=== PATIENT | male | born 1950 | race Caucasian/White ===

== ENCOUNTER 2016-11-02 07:25 | Inpatient (IN) | payer BC ==
[~2016-11-02] VITALS: Ht 170.2 cm; Wt 87.7 kg
--- NOTE | 2016-11-04 13:16 | ER ---
ADMIT: 11/02/2016 RM/LOC: 411 [facility] MR#: [id number] [address] [address] MIHAI CADENA [address] [place] [address] Emergency Room Report SEX: M AGE: 66 : 1950 DATE: 11/02/2016 The patient is a 66-year-old male with a past medical history of hypertension, lung cancer status post right lung lobectomy, bladder cancer, prostate cancer, and basal cell carcinoma of the skin. The patient is not taking any chemotherapy or radiotherapy at the moment. The patient came to the ER with chief complaint of fever, chills, and feeling very weak and tired since this morning. The patient denies any sick contact at home. The patient states he has some cough, which was dry. The patient denied increase in shortness of breath. In the ER, the patient had temperature of 101 and received Tylenol for that. Heart rate was 145, with blood pressure of 130 systolic. The patient was started on IV fluids. Sepsis workup was started. Lactic acid was 3.5. WBC was 17.5 with 16.6 of neutrophil, and hemoglobin was 15.9. The patient was negative for influenza A and B antigen. Urine was negative for any infection or stone. Chest x-ray, first read in the ER was questionable for small infiltrations, but official Radiology read, they believe, there is no infiltration. The patient meanwhile has received levofloxacin IV in the ER. The patient was admitted for further followups and treatments of sepsis, viral causes versus pneumonia, bacterial. Questionable for septicemia. Deshaun Torres MD/ amadeo JOB #: [id number] CC: Francisco Gonzales MD, Attending Physician Francisco Gonzales MD, Family Physician
--- NOTE | 2016-11-05 10:44 | HP ---
ADMIT: 11/02/2016 RM/LOC: 411 [facility] MR#: [id number] [id number] [place], [place] [address] MIHAI CADENA [address] [place] [address] History and Physical SEX: M AGE: 66 : 1950 DATE OF SERVICE: CHIEF COMPLAINT: Fevers, chills, body shakes. HISTORY OF PRESENT ILLNESS: The patient is a 66-year-old male, presented to ER with 12 hours of fevers, chills, and shakes also couple days of preceding URI like symptoms. Also notes a history of COPD with prior tobacco history. His only significant medical problems are rather extensive cancer history. PAST MEDICAL HISTORY: Lung cancer, bladder cancer, prostate cancer, basal cell cancer, hypertension, and COPD. PAST SURGICAL HISTORY: Prostate, lung, and shoulder. ALLERGIES: PATIENT DENIES. MEDS: 1. Aspirin 81 daily. 2. Chlorthalidone 25 daily. 3. Multivitamin one daily. 4. ProAir p.r.n. FAMILY HISTORY: Cancer. REVIEW OF SYSTEMS: Notes fevers, chills, nonspecific chest tightness. Denies any true chest pain, headaches, nausea, vomiting, numbness, tingling, vision changes, or melena. SOCIAL HISTORY: Notes prior tobacco use. No drugs or alcohol. PHYSICAL EXAMINATION: VITAL SIGNS: Temp 97.5, pulse 105, respirations 20, blood pressure 114/52, and O2 sat 92% on room air. GENERAL: He is alert, awake, oriented, in no acute distress. HEENT: Normocephalic, atraumatic. Pupils round and reactive to light. Extraocular muscles intact. HEART: Regular rate and rhythm. LUNGS: Relatively clear, slightly diminished. ABDOMEN: Soft, nontender, nondistended. EXTREMITIES: No clubbing, cyanosis, or edema. LABORATORY DATA: 0.25. Potassium 2.5, mag 1.5, , lactic acid 3.9. UA unremarkable. Chest x-ray clear. White count 17.5, hemoglobin ADMIT: 11/02/2016 RM/LOC: 411 [facility] MR#: [id number] [address] [address] MIHAI CADENA [address] [place] [address] History and Physical SEX: M AGE: 66 : 1950 15, hematocrit . Blood culture is pending. Influenza negative. Wound culture pending. ASSESSMENT: A 66-year-old male with: 1. Sepsis. 2. Fever. 3. Upper respiratory tract infection. 4. Tachycardia. 5. Extensive cancer history. PLAN: We will continue IV fluid resuscitation, IV antibiotics, nebs, we will give him low-dose steroids. Ced Castillo MD/ amadeo JOB #: [id number] CC: Francisco Gonzales, Attending Physician Francisco Gonzales, Family Physician
[2016-11-08] MEDS ORDERED: ASA CHILDREN'S81 MG PO (18:37)
[2016-11-08] MEDS ORDERED: THERAPEUTIC MUL1 TAB PO (18:38)
[2016-11-08] MEDS ORDERED: CHLOROTHALIDONE PO (18:39)
[2016-11-08] MEDS ORDERED: PROAIR HFA8.5 GM IH (18:40)
[2016-11-08] MEDS ORDERED: DUONEB DPS3 ML IH (18:40)
[2016-11-08] MEDS ORDERED: MICRO-K DPS10 MEQ PO (18:40)
[2016-11-08] MEDS ORDERED: MAALOX DPS30 ML PO (18:41)
[2016-11-08] MEDS ORDERED: DELTASONE DPS1 MG PO (18:41)
[2016-11-08] MEDS ORDERED: ROCEPHIN DPS2 GM IV (18:41)
[2016-11-08] MEDS ORDERED: SURFAK DPS240 MG PO (18:42)
[2016-11-08] MEDS ORDERED: TYLENOL DPS325 MG PO (18:42)
--- NOTE | 2016-11-14 14:12 | CO ---
ADMIT: 11/02/2016 RM/LOC: 411 [facility] MR#: [id number] [address] [address] MIHAI CADENA [address] [place] [address] Consultation SEX: M AGE: 66 : 1950 DATE OF CONSULTATION: 11/05/2016 ATTENDING PHYSICIAN: Francisco Gonzales CONSULTING PHYSICIAN: Laure Roman MD REASON FOR CONSULT: Bacteremia. Thank you, Dr. Gonzales, for the consult and involving me in this patient's care. HISTORY OF PRESENT ILLNESS: Mr. Cadena is a 66-year-old man with past medical history of lung cancer, status post right lung lobectomy, bladder cancer, prostate cancer, and basal cell carcinoma of the skin, who presented to the ER on November 02 with complain of fever, chills, and feeling extremely weak. Prior to symptoms, he noticed some cold and mild cough. He lives at home with his and pet cat and dog. He denied any recent travel or sick contacts. He was found to have fever of 101 in the ER and elevated lactic acid of 3.5, and WBC count of 17.5. He was started on broad-spectrum antibiotics with vancomycin and Zosyn and his admission blood cultures grew Streptococcus pneumoniae. CT scan of the chest was done, and he was found to have extensive consolidation in the medial aspect of the right lower lobe. He also has severe emphysema. The patient feels much better clinically since admission. He continues to have some cough and now reports brownish-colored sputum. He does not have any fever since starting antibiotics. PAST MEDICAL HISTORY: 1. Bladder cancer. 2. Prostate cancer. 3. Basal cell carcinoma. 4. Lung cancer, currently not on any chemotherapy. 5. Hypertension. 6. COPD. PAST SURGICAL HISTORY: 1. Right lung lobectomy in 1994. 2. Right rotator cuff surgery. SOCIAL HISTORY: He lives at home with his and works and [employer]. Quit smoking in 1994. Denies any smoking. Denies any recreational drug use or alcohol. FAMILY HISTORY: Significant for breast cancer in his mother. ALLERGIES: NO KNOWN DRUG ALLERGIES. CURRENT MEDICATIONS: 1. Aspirin. 2. DuoNeb. ADMIT: 11/02/2016 RM/LOC: 411 [facility] MR#: [id number] [address] [address] [address] [place] [address] Consultation SEX: M AGE: 66 : 1950 3. Lovenox. 4. Solu-Medrol 40 mg twice daily. 5. Zosyn 3.375 g every 8 hours. 6. Vancomycin 1.75 g twice daily. REVIEW OF SYSTEMS: A 10-point review of systems negative except as mentioned in the HPI. PHYSICAL EXAMINATION: VITAL SIGNS: Current temperature 96.5, heart rate 75, respirations 16, blood pressure 124/67, and 91% on room air. GENERAL: No acute distress. HEENT. Head, normocephalic and atraumatic. Extraocular movements intact. LYMPH: No palpable anterior/posterior cervical or supraclavicular lymphadenopathy. CHEST: Decreased breath sounds bilaterally. CARDIOVASCULAR: S1, S2 heard. Regular rate and rhythm. ABDOMEN: Soft, obese, and nontender. Active bowel sounds. EXTREMITIES: Trace pretibial edema in bilateral lower extremities. SKIN: No rash noted on exposed skin. PSYCH: Normal affect. Memory intact. DATA REVIEW: Chest x-ray today shows extensive bibasilar linear densities and ground-glass opacities with small right pleural effusion. Repeat blood cultures have been no growth to date. Blood cultures on November 02 is growing Streptococcus pneumoniae, which is pansensitive. CBC today shows white count of 25.1, hemoglobin 11.8, and platelets of 295. BMP shows creatinine of 0.6, potassium 3.3. ASSESSMENT AND PLAN: 1. Streptococcus pneumoniae bacteremia, secondary to #2. 2. Invasive community-acquired pneumonia. ADMIT: 11/02/2016 RM/LOC: 411 [facility] MR#: [id number] [address] [address] MIHAI CADENA [address] [place] [address] Consultation SEX: M AGE: 66 : 1950 3. History of lung cancer. 4. Severe chronic obstructive pulmonary disease. 5. Bladder cancer. 6. Lactic acidosis, improved. PLAN: I will discontinue vancomycin and Zosyn and narrow antibiotics down to ceftriaxone 2 g IV once daily. I will also check sputum culture and sensitivity. I would like to treat him with IV antibiotics for a while, given extensive pneumonia and immunocompromised state. Given the invasive pneumococcal disease, I would also like to check HIV test. Thank you for the consult and I will continue to follow the patient. Laure Roman MD/ amadeo JOB #: [id number] CC: Francisco Gonzales, Attending Physician Francisco Gonzales, Family Physician
--- NOTE | 2016-11-19 07:52 | DS ---
ADMIT: 11/02/2016 RM/LOC: 411 [facility] MR#: [id number] [address] [address] MIHAI CADENA [address] [place] [address] General Discharge Summary SEX: M AGE: 66 : 1950 ADMISSION DATE: 11/02/2016 DISCHARGE DATE: 11/07/2016 FINAL DIAGNOSES: 1. Invasive community-acquired pneumonia. 2. Streptococcus pneumoniae bacteremia/human metapneumovirus infection secondary to invasive community-acquired pneumonia. 3. Severe chronic obstructive pulmonary disease. 4. Lactic acidosis secondary to invasive community-acquired pneumonia. 5. History of lung cancer. 6. History of bladder cancer. 7. History of prostate cancer. 8. Systemic hypertension. 9. Status post prostatectomy, pneumonectomy, and rotator cuff repair. BRIEF HISTORY: This 66-year-old, male, presented to the emergency room with 12 hours of fevers, chills, and shaking that was appreciated "for a couple of days with URI like symptoms." He also had a history of COPD and extensive cancer history. When seen in the ER, he was obviously ill, had laboratory abnormalities as outlined below, and he was admitted for further evaluation and treatment. SIGNIFICANT LAB AND X-RAY: On admission; CBC showed hemoglobin 15.9 with normal indices, platelets of 284,000, white count of 17,500 with a left shift. Serial CBCs were followed, and by 11/06, his hemoglobin was 12 g still with normal indices and white count of 19,400. On 11/06, sedimentation rate was 47 mm/hour. On admission, INR and PTT were essentially normal. Admitting urinalysis was normal. On 11/02 in the emergency room, BMP showed a potassium of 3.5 mmol/L, phosphorus of 1.3 mg/dL (normal 2.5 to 4.9), and magnesium of 1.5 mg/dL (normal 1.8 to 2.4), and the CMP was otherwise within normal limits. On admission, procalcitonin was 0.25 ng/mL (greater than 2.0 represents high risk of severe sepsis or septic shock). On 11/02, lactic acid was 3.5 mmol/L and repeat 6 hours later was 2.6 mmol/L. Serial lactic acids were followed and by 11/03 was down to 2.7 mL/L. Serial chemistries were followed, and by 11/06, the BMP was normal, but for potassium of 3.3 mmol/L and glucose of 129 mg/dL. On 11/06, procalcitonin was 1.53 ng/mL, and lactic acid was 1.4 mmol/L. ADMIT: 11/02/2016 RM/LOC: 411 [facility] MR#: [id number] [address] [address] MIHAI CADENA [address] [place] [address] General Discharge Summary SEX: M AGE: 66 : 1950 On 11/02, TSH was 1.560 uIU/L (normal 0.400 to 3.800). Vancomycin levels were monitored. HIV 1 and 2 testing was negative. Influenza type A/B antigen testing was negative while on the admission. Blood cultures obtained on admission grew Streptococcus pneumoniae isolated from 2/2 sets, sensitive to all antibiotics tested. Repeat blood cultures of 11/03 had no growth after 5 days incubation. Sputum culture of 11/05, grew "normal jessa." Urine culture on admission had no growth. Respiratory viral panel was positive for human metapneumovirus. The patient's blood type is O, Rh positive with a negative antibody screen. On 11/03, CT scan of the chest noncontrast was reported as "impression: 1. Extensive pneumonia in the medial aspect of the right lower lobe. 2. Small infiltrates noted in the medial aspect of the right upper lobe adjacent to cardiac border. 3. Severe emphysema. 4. Postop changes of partial right-sided pneumonectomy.". Chest x-ray in the emergency room read as "stable postoperative changes in the right upper lobe." Serial chest x-rays were followed, and by 11/06, it was read as "significant improvement in the right lower lobe pneumonia." EKG on admission was read as "sinus tachycardia, indeterminate axis, RSR prime (V1) probable normal variant, possible inferior infarct, age undetermined." Serial EKGs x2 more showed no significant change, but for rate. Overnight oximetry studies of 11/05/2016, showed O2 saturation of 86% on room air at 2325 hours and from 90% to 93% on 2 L of O2. HOSPITAL COURSE: The patient was admitted through the emergency room and the imaging and laboratory studies outlined above were begun. He was admitted to the ER sepsis protocol with levofloxacin and vancomycin. Zosyn was also added. He was placed on PCU orders. He was allowed a regular diet. Adjustments were made in his IV antibiotic doses via pharmacy. He was also started on Tamiflu 75 mg p.o. b.i.d., and Solu-Medrol 40 mg IV b.i.d., and Protonix 40 mg IV daily. IV fluids were administered. By 11/03, he stated he felt significantly better, but still "fatigued." His Tamiflu was discontinued. Blood cultures were drawn x2 again with positive ADMIT: 11/02/2016 RM/LOC: 411 [facility] MR#: [id number] [address] [address] MIHAI CADENA [address] [place], [place] [id number] General Discharge Summary SEX: M AGE: 66 : 1950 results on the 1st two. Further adjustments were made in his IV fluid rate. He was placed on Lovenox 40 mg subcu daily for deep vein thrombosis prophylaxis. Over the next couple days, he slowly continued to improve. He was changed to telemetry status with routine telemetry standing orders. Subsequently then, he was changed to routine MedSurg orders. By 11/02 (day 3), he remained afebrile. He was feeling "a lot better." I asked Dr. Roman to see him concerning the need for any other workup for treatment and she was kind enough to do so. She discontinued the Zosyn and started him on Rocephin 2 g IV once daily. By 11/06 (day 4), he was continuing to feel better. The trend ox was requested. Dr. Roman requested his Rocephin 2 g IV daily to be continued until 11/12/2016 as an outpatient in short stay. He was seen by the dietitian. Exercise oximetry showed resting spot O2 on room air 95%, but with walking, it dropped to 75%, on 1 L his walking spot O2 was 85%, on 2 L 88%, and on 3 L 92%, so he will be sent out on 3 L while walking. Respiratory therapy home nebulizer was also requested. By 11/07 (day 5), he remained afebrile. He stated he was "feeling pretty good" and was anxious to go home. At that point, we felt it safe to dismiss him to home. He will be allowed diet as tolerated and activity as tolerated. Home O2 will be set up per respiratory therapy recommendations. An overnight oximetry at home will be done in 3 to 4 more weeks. Arrangements were made for him to be seen in my office in 10 to 14 days with a CBC, BMP, and chest x- ray then. Arrangements were made for followup with Dr. Roman per her wishes. MEDICATIONS: On dismissal, his medications included: 1. Prednisone 10 mg t.i.d. for 2 days and then a taper q.2 days until he is off it. 2. Rocephin 2 g IV daily until 11/12/2016. 3. Aspirin 81 mg daily. 4. Micro-K 10 mEq b.i.d. 5. Multivitamin 1 daily. ADMIT: 11/02/2016 RM/LOC: 411 [facility] MR#: [id number] [address] [facility] [address] [place] [id number] MIHAI CADENA [address] [place] [address] General Discharge Summary SEX: M AGE: 66 : 1950 6. DuoNeb q.i.d. and q.1 to 2 hours p.r.n. and p.r.n. orders for Maalox, Surfak, Tylenol, and Proventil. He will also be placed back on his routine aspirin 81 mg daily, chlorthalidone 25 mg daily, multivitamin 1 daily, and ProAir inhaler p.r.n. CONDITION ON DISCHARGE: Stable on the above treatment. FINAL DISPOSITION: As noted. PROGNOSIS: Guarded. Francisco Gonzales MD/ amadeo JOB #: [id number] CC: Francisco Gonzales MD, Attending Physician Francisco Gonzales MD, Family Physician Luare Roman MD
== END 2016-11-07 12:03 | disposition home or self-care (01) | DRG 871 ==
LOC: ER 07:25 → 4PCU 09:58
PROVIDERS: ADMIT Family Medicine
DX: A40.3 Sepsis due to Streptococcus pneumoniae (principal); J18.9 Pneumonia, unspecified organism; J44.9 Chronic obstructive pulmonary disease, unspecified; I10 Essential (primary) hypertension; J06.9 Acute upper respiratory infection, unspecified; Z85.118 Personal history of other malignant neoplasm of bronchus and lung; Z85.46 Personal history of malignant neoplasm of prostate; Z85.51 Personal history of malignant neoplasm of bladder; Z85.828 Personal history of other malignant neoplasm of skin; Z87.891 Personal history of nicotine dependence; Z79.82 Long term (current) use of aspirin